=== PATIENT | male | born 1940 | race Caucasian/White ===

== ENCOUNTER 2016-11-22 12:14 | Emergency (ER) | payer OTHER ==
[~2016-11-22 12:14] MED LIST: ACETAMINOPHEN325 MG PO; AFRIN15 M1 NS; ASPIR 8181 MG PO; CHILDREN'S ASPI81 MG PO; DULERA 200 MCG8.8 GM IH; DULERA 200 MCG8.8 GM INH; FINGERSTIX; HUMALOG100 UNIT/1 SC; HUMALOG100 UNIT/1 SQ; LANTUS100 UNIT/1 SC; LANTUS100 UNIT/1 SQ; LEVAQUIN750 MG PO; LIPITOR40 MG PO; LISINOPRIL2.5 MG PO; PRILOSEC20 M1 PO; SINGULAIR10 MG PO; SPIRIVA18 MCG IH; SPIRIVA18 MCG INH; SYMBICORT 16010.2 GM IH; SYMBICORT 16010.2 GM INH; TOPROL XL25 MG PO; TRIAMCINOLONE A15 G1 TOP; VITAMIN B-121000 MCG PO; VITAMIN B-122500 MCG PO; VITAMIN B-122500 MCG SL
== END 2016-11-22 17:13 | disposition home or self-care (01) ==
LOC: ER 12:14
DX: R07.9 Chest pain, unspecified (principal); R11.0 Nausea; K21.9 Gastro-esophageal reflux disease without esophagitis; I10 Essential (primary) hypertension; E11.9 Type 2 diabetes mellitus without complications; J44.9 Chronic obstructive pulmonary disease, unspecified; I25.10 Atherosclerotic heart disease of native coronary artery without angina pectoris; Z95.5 Presence of coronary angioplasty implant and graft; Z79.82 Long term (current) use of aspirin; Z79.02 Long term (current) use of antithrombotics/antiplatelets; Z79.899 Other long term (current) drug therapy; Z88.0 Allergy status to penicillin
CPT/HCPCS: 36415; 96365; 96366; 96375; J1885